=== PATIENT | male | born 1990 | race Caucasian/White ===

== ENCOUNTER 2025-01-08 09:04 | Emergency (ER) | payer OTHER, SELFPAY ==
[2025-01-08 09:04] VITALS: BP 126/88; PULSE 78; RESP 18; TEMP 36.3; O2SAT 100
--- NOTE | 2025-01-08 09:16 | ED_ITS ---
HPI - Dental/Oral General Chief complaint: Dental/Oral Stated complaint: tooth pain Time Seen by Provider: 01/08/25 09:16 Source: patient Mode of arrival: ambulatory Limitations: no limitations History of Present Illness HPI Narrative: widespread dental pain mainly left upper side, chronic, intermittent, worse over the last 24 hours. He denies any fever, chills, nausea, vomiting, trouble swallowing or breathing Related Data Allergies Allergy/AdvReac Type Severity Reaction Status Date / Time amoxicillin Allergy Unknown Verified 01/08/25 09:08 Penicillins Allergy Unknown Verified 01/08/25 09:08 Review of Systems Review of Systems: All systems reviewed & are unremarkable except as noted in HPI and below Exam Narrative: General appearance: Well-developed, well-nourished Skin: Normal color Head: Normocephalic, nontraumatic Eyes: Clear conjunctiva ENT: Oropharynx normal, ears normal, nose normal, widespread dental decay and caries all over the mouth mainly left upper gum with swelling gum, no abscess Neck: Supple, nontender Chest and respiratory: Airway patent, no respiratory distress, no accessory muscle use Heart: Regular rate/rhythm Abdomen: Soft, nontender, no organomegaly, quiet bowel sounds Vascular: Normal peripheral pulses, normal capillary refill. Musculoskeletal: Normal range of motion, nontender back Neurologic: Alert and oriented ?3, [employer] is normal as tested, no gross motor deficit Course Vital Signs Vital signs: Vital Signs Temperature 36.3 C L 01/08/25 09:04 Pulse Rate 78 01/08/25 09:04 Respiratory Rate 18 01/08/25 09:04 Blood Pressure 126/88 01/08/25 09:04 Pulse Oximetry 100 01/08/25 09:04 Oxygen Delivery Room Air 01/08/25 09:04 Temperature 36.3 C L 01/08/25 09:04 Pulse Rate 78 01/08/25 09:04 Respiratory Rate 18 01/08/25 09:04 Blood Pressure 126/88 01/08/25 09:04 Pulse Oximetry 100 01/08/25 09:04 Oxygen Delivery Room Air 01/08/25 09:04 MDM - Dental/Oral MDM Narrative Medical decision making narrative: dental caries Differential Diagnosis Differential diagnosis: Likely dental caries and toothache Discharge Plan Discharge Clinical Impression: Dental caries, Gingivitis Patient Disposition: Home Condition: Stable Instructions: Antibiotic Form, Toothache (ED) Additional Instructions: Return if symptoms are worsening , call your dentist for appointment, take Tylenol as as needed for aches and pain, continue home medications. Patient Language: [place] Prescriptions: New clindamycin HCl [Cleocin HCl] 150 mg capsule 450 mg PO Q8H 10 Days Qty: 90 0RF ibuprofen [IBU] 800 mg tablet 800 mg PO TID Qty: 20 0RF Follow-up/Referrals: Suhail Maier MD [Primary Care Provider, Internal Medicine] Stand Alone Forms: Work/School Release IP
== END 2025-01-08 09:34 | disposition home or self-care (01) ==
LOC: CHSED 09:27
PROVIDERS: Emergency Provider Emergency Medicine; Referring Provider Internal Medicine
DX: K02.9 Dental caries, unspecified (principal); K05.10 Chronic gingivitis, plaque induced
CPT/HCPCS: 99283